=== PATIENT | female | born 2000 | race Caucasian/White ===

== ENCOUNTER 2021-01-14 16:49 | Emergency (ER) | payer OTHER ==
[2021-01-14] MEDS ORDERED: ACETAMINOPHEN 325 MG TABLET (FP) PO ONE (16:51)
[2021-01-14 17:14] VITALS: BP 120/75; PULSE 88; TEMP 98.5; BMI 24.7
[2021-01-14] MEDS ORDERED: ACETAMINOPHEN 325 MG TABLET (FP) ONE (17:16)
== END 2021-01-14 19:10 | disposition home or self-care (01) ==
LOC: FER 16:49
DX: J06.9 Acute upper respiratory infection, unspecified (principal)
CPT/HCPCS: 71045-TC-FY; 87804; 87899; 99284-25; C9803; U0003; U0005

== ENCOUNTER 2021-01-15 01:12 | Emergency (ER) | payer OTHER ==
[2021-01-15] MEDS ORDERED: ALBUTEROL SO4 2.5/IPRATROPIUM 0.5 INH SOL 3 ML VIAL.NEB. NEB ONE ×4 (01:16→01:39)
[2021-01-15 01:23] VITALS: BP 130/85; PULSE 95; TEMP 99.5; BMI 26.0
[2021-01-15] MEDS ORDERED: ALBUTEROL SO4 0.042% IH SOL 1.25 MG/3 ML VIAL.NEB NEB ONE (01:35)
[2021-01-15] MEDS ORDERED: predniSONE 20 MG TABLET (UD) PO ONE (01:35)
[2021-01-15] MEDS ORDERED: predniSONE 20 MG TABLET (UD) ONE (01:36)
== END 2021-01-15 02:05 | disposition home or self-care (01) ==
LOC: FER 01:12
PROC: 3E0F7GC Introduction of Other Therapeutic Substance into Respiratory Tract, Via Natural or Artificial Opening (ICD-10-PCS; principal; 2021-01-15)
PROC: 3E0F7GC Introduction of Other Therapeutic Substance into Respiratory Tract, Via Natural or Artificial Opening (ICD-10-PCS; 2021-01-15)
DX: J06.9 Acute upper respiratory infection, unspecified (principal); J45.21 Mild intermittent asthma with (acute) exacerbation
CPT/HCPCS: 94640; 99283-25

== ENCOUNTER 2022-09-07 17:52 | Emergency (ER) | payer OTHER ==
[2022-09-07] MEDS ORDERED: ALBUTEROL SO4 2.5/IPRATROPIUM 0.5 INH SOL 3 ML VIAL.NEB. NEB ONE ×3 (18:07→18:38)
[2022-09-07 18:38] VITALS: BP 129/76; PULSE 93; RESP 20; TEMP 98.3; BMI 24.7
== END 2022-09-07 19:18 | disposition home or self-care (01) ==
LOC: FER 17:52
PROC: 3E0F7GC Introduction of Other Therapeutic Substance into Respiratory Tract, Via Natural or Artificial Opening (ICD-10-PCS; principal; 2022-09-07)
DX: J45.21 Mild intermittent asthma with (acute) exacerbation (principal)
CPT/HCPCS: 99283-25

== ENCOUNTER 2022-09-08 00:42 | Emergency (ER) | payer OTHER ==
[2022-09-08 00:49] VITALS: BP 128/89; PULSE 115; RESP 16; TEMP 100.1; BMI 24.7
[2022-09-08] MEDS: ALBUTEROL SO4 2.5/IPRATROPIUM 0.5 INH SOL 3 ML VIAL.NEB. NEB SCH ×3 (01:01→01:30)
== END 2022-09-08 02:00 | disposition home or self-care (01) ==
LOC: FER 00:42
PROC: 3E0F7GC Introduction of Other Therapeutic Substance into Respiratory Tract, Via Natural or Artificial Opening (ICD-10-PCS; principal; 2022-09-08)
DX: J45.901 Unspecified asthma with (acute) exacerbation (principal)
CPT/HCPCS: 99283-25